=== PATIENT | female | born 1955 | race Caucasian/White ===

== ENCOUNTER → 2024-06-24 10:23 | Outpatient (CLI) | payer MEDICARE, OTHER, SELFPAY ==
[2024-06-24 12:02] LABS: Alanine Aminotransferase 17 IU/L (<35); Albumin Globulin Ratio 1.9 (1.0-2.8); Alkaline Phosphatase 62 U/L (38-126); Aspartate Aminotransferase 21 IU/L (14-36); BUN Creatinine Ratio 13.7 (6-22); Bilirubin Total 0.5 mg/dL (0.2-1.3); Blood Urea Nitrogen 10 mg/dL (7-17); Calcium 10.2 mg/dL (8.4-10.2); Carbon Dioxide 28 mmol/L (22-32); Cholesterol 221 mg/dL (140-199); Estimated Glomerular Filt Rate > 60 mL/min (>60); Globulin 2.7 g/dL (1.7-4.1); Glucose 99 mg/dL (80-110); HDL Cholesterol 48 mg/dL (40-60); HEMOLYSIS < 15 (0-50); LDL Cholesterol Calculated 142 mg/dL (<100); Potassium 4.6 mmol/L (3.4-5.1); Sodium 141 mmol/L (137-145); Total Protein 7.7 g/dL (6.3-8.2); Triglycerides 153 mg/dL (35-150)
[2024-06-24 12:30] LABS: Rheumatoid Factor < 8.6 IU/mL (<12.0)
[2024-06-24 12:31] LABS: Chloride 105 mmol/L (98-107)
[2024-06-24 17:40] LABS: Hemoglobin A1C% w Est Avg Glu 4.8 % (4.0-6.0)
[2024-06-25 03:36] LABS: CRP, High Sensitivity 0.76 mg/L (0.00-3.00)
[2024-06-25 07:10] LABS: Thyroid Peroxidase Antibodies 168 IU/mL (0-34)
== END ==
PROVIDERS: PCP Family Medicine; Referring Provider Family Medicine; Visit Provider Family Medicine
DX: E78.1 Pure hyperglyceridemia (principal); E06.3 Autoimmune thyroiditis
CPT/HCPCS: 36415; 80053; 80061; 83036; 86140; 86376; 86430

== ENCOUNTER → 2024-06-28 15:48 | Outpatient (CLI) | payer MEDICARE, OTHER, SELFPAY ==
[2024-06-28 17:43] LABS: Free T3, Triiodothyronine Free 3.34 pg/mL (2.77-5.27); Free T4, Direct Thyroxine 1.04 ng/dL (0.78-2.19)
[2024-06-28 17:56] LABS: Thyroid Stimulating Hormone 1.76 uIU/mL (0.47-4.68)
[2024-07-04 14:36] LABS: Triiodothyronine T3 Reverse 13.2 ng/dL (.)
== END ==
PROVIDERS: PCP Family Medicine; Referring Provider Family Medicine; Visit Provider Family Medicine
DX: E06.3 Autoimmune thyroiditis (principal); R53.83 Other fatigue
CPT/HCPCS: 36415; 82542; 84439; 84443; 84481; 84482